=== PATIENT | male | born 1955 | race Caucasian/White ===

== ENCOUNTER 2016-07-21 10:12 | Emergency (ER) | payer SELFPAY ==
--- NOTE | ~2016-07-21 | CR21 ---
[facility] A Service of [facility] & [facility] / [facility] RADIOLOGY TEXT RESULTS PATIENT: MEGAN PERRY LOCATION: [facility] : 57 UNIT #: [id number] AGE: [address]: OTILIA GROVES SEX: M ORDER DR: [id number] [facility] [address] [place], [place] [address] [id number] E MR#: [id number] Acc #: [id number] NAME: MEGAN PERRY : 1955 SEX: M STUDY DATE/TIME: 07/21/2016 11:12 UNIT: [facility] ROOM: STUDY DESCRIPTION: CR Ankle Min 3 Views Rt Attending Physician: Otilia Groves A.P.R.N. Ordering Physician: Otilia Groves A.P.R.N. Primary Care Physician: Amilcar Wesley M.D. MEDICAL IMAGING REPORT This report is preliminary unless electronic signature is present EXAM Right ankle, 3 views. INDICATION Right ankle pain and swelling after falling yesterday. COMPARISON There are no comparisons. FINDINGS There is soft tissue swelling about the ankle. There is an old well-corticated either fracture deformity or heterotopic ossification involving the medial malleolus. Calcaneal spurring. There is no evidence for any acute fracture. Ankle mortise intact. IMPRESSION No acute fracture. Well corticated ossicles inferior to the medial malleolus may represent old healed injury versus heterotopic ossification. Dictated by... Mickey Valenzuela M.D. THIS IS AN ELECTRONICALLY VERIFIED REPORT Mickey Valenzuela M.D. at 07/22/2016 3:47 PM TETO/roxie TD: 07/21/2016 22:42 JOB #: [id number] MEDICAL IMAGING REPORT Page 1 of 1 COPY
--- NOTE | ~2016-07-21 | CR173 ---
[facility] A Service of [facility] & [facility] RADIOLOGY TEXT RESULTS PATIENT: MEGAN PERRY LOCATION: [facility] : 57 UNIT #: [id number] AGE: [address]: OTILIA GROVES SEX: M ORDER DR: [id number] [facility] [address] [place], [place] [address] [id number] E MR#: [id number] Acc #: [id number] NAME: MEGAN PERRY : 1955 SEX: M STUDY DATE/TIME: 07/21/2016 11:07 UNIT: [facility] ROOM: STUDY DESCRIPTION: CR Knee 3 Views Rt Attending Physician: Otilia Groves A.P.R.N. Ordering Physician: Otilia Groves A.P.R.N. Primary Care Physician: Amilcar Wesley M.D. MEDICAL IMAGING REPORT This report is preliminary unless electronic signature is present EXAM Right knee 3 views INDICATIONS Right knee pain after falling yesterday. No comparisons. FINDINGS There is degenerative changes of the knee joint within all 3 compartments. There is a small joint effusion. No definite fracture. No dislocation. 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 No definite fracture. Dictated by... Mickey Valenzuela M.D. THIS IS AN ELECTRONICALLY VERIFIED REPORT Mickey Valenzuela M.D. at 07/22/2016 3:47 PM ARS/tevin TD: 07/21/2016 22:42 JOB #: [id number] MEDICAL IMAGING REPORT Page 1 of 1 COPY
--- NOTE | ~2016-07-21 | CR253 ---
[facility] A Service of [facility] & [facility] RADIOLOGY TEXT RESULTS PATIENT: MEGAN PERRY LOCATION: [facility] : 57 UNIT #: [id number] AGE: [address]: OTILIA GROVES SEX: M ORDER DR: [id number] [facility] [address]. [place], [place] [address] [id number] E MR#: [id number] Acc #: [id number] NAME: MEGAN PERRY : 1955 SEX: M STUDY DATE/TIME: 07/21/2016 11:11 UNIT: [facility] ROOM: STUDY DESCRIPTION: CR Tibia and Fibula 2 Views Rt Attending Physician: Otilia Groves A.P.R.N. Ordering Physician: Otilia Groves A.P.R.N. Primary Care Physician: Amilcar Wesley M.D. MEDICAL IMAGING REPORT This report is preliminary unless electronic signature is present EXAM Right tibia-fibula 2 views INDICATIONS Leg and ankle pain, swelling and redness after falling yesterday. No comparisons. FINDINGS There is no definite acute fracture. There is some soft tissue swelling about the ankle. The alignment is normal. IMPRESSION No acute finding Dictated by... Mickey Valenzuela M.D. THIS IS AN ELECTRONICALLY VERIFIED REPORT Mickey Valenzuela M.D. at 07/22/2016 3:47 PM ARS/tevin TD: 07/21/2016 22:40 JOB #: [id number] MEDICAL IMAGING REPORT Page 1 of 1 COPY
== END 2016-07-21 13:18 | disposition home or self-care (01) ==
LOC: CED 10:12 → CFTX 10:12 → CED 12:05 → CFTX 12:05
DX: S93.401A Sprain of unspecified ligament of right ankle, initial encounter (principal); S80.01XA Contusion of right knee, initial encounter; I10 Essential (primary) hypertension; F17.200 Nicotine dependence, unspecified, uncomplicated; W01.0XXA Fall on same level from slipping, tripping and stumbling without subsequent striking against object, initial encounter; Y92.009 Unspecified place in unspecified non-institutional (private) residence as the place of occurrence of the external cause
CPT/HCPCS: 29530; 29540; 73562; 73590; 73610; 99284